=== PATIENT | male | born 1950 | race Caucasian/White ===

== ENCOUNTER 2016-10-21 19:07 | Emergency (ER) | payer MEDICARE ==
[~2016-10-21] VITALS: Ht 177.8 cm; Wt 106.4 kg
[2016-10-21 19:31] VITALS: BP 173/102; PULSE 111; RESP 18; O2SAT 96
[2016-10-21 20:35] LABS: BASOPHILS % (AUTO) 0.8 % (0-3); EOSINOPHILS % (AUTO) 1.8 % (0-5); Mean Corpuscular Volume 88.1 fL (81-100); NEUTROPHILS % (AUTO) 71.7 % (40-74); Platelet Count 258 bil/L (150-400)
[2016-10-21 21:17] LABS: TROPONIN T < 0.010 ug/L (0.0-0.011)
[2016-10-21 22:19] VITALS: BP 169/90; PULSE 116; RESP 20; O2SAT 95
--- NOTE | 2016-10-21 22:25 | ED.REPORT ---
HPI-General Illness Date of Service October 21, 2016 ED Provider: Devang Lr MD The patient is a 66 year old male who presents to the ED due to racing heart and elevated heart rate [employer]. 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 He is worried that it is still too high. Associated symptoms include light, mid-chest pain and a slight cough. He has never had a heart attack and is not on any medication for blood sugar. The pt denies any other symptoms or health issues. He is also on lisinopril. Pt denies nausea, vomiting, diaphoresis, and productive- cough. Nursing Notes Stated Complaint: BLOOD PRESSURE Chief Complaint: General Complaint Nursing Notes Reviewed: Yes Allergies: Coded Allergies: colchicine (Verified Allergy, Mild, rash, 10/21/16) allopurinol (Verified Adverse Reaction, Unknown, Rash,Itching,, 10/21/16) Uncoded Allergies: CHICKEN EGGS (Allergy, Unknown, 10/21/16) Scheduled Metoprolol Tartrate (Metoprolol Tartrate) 25 Mg Tablet 12.5 MG PO BID General Time Seen by MD: 22:24 Chief Complaint Other (elevated heart rate ) Hx Obtained From: Patient Arrived By: Walk-in Sudden in Onset?: Yes Recent Healthcare: Recent doctor visit Similar Sx Previous: No Past Medical History Past Medical History HTN Past Surgical History Reports: Tonsillectomy Smoking History Never Smoker Social History Other Social History: Good social support, Local resident Ambulatory Status Independent Review of Systems elevated heart rate Full Review of Systems Respiratory: Reports: Non-productive cough, Denies: Prod cough, clear Cardiovascular: Reports: Chest pain ("light, mid-chest pain") GI: Denies: Nausea, Vomiting Musculoskeletal: Denies: Extremity swelling Skin: Denies Diaphoresis Complete sys rev & neg: except as marked. Physical Exam Vital Signs Vital Signs Date Time Temp Pulse Resp B/P Pulse Ox O2 Delivery O2 Flow Rate FiO2 10/22/16 00:55 70 16 125/79 97 10/22/16 00:11 68 14 106/68 96 Room Air 10/21/16 22:19 116 20 169/90 95 10/21/16 19:31 36.7 111 18 173/102 96 Room Air Initial VS: Reviewed Head / Eyes: Atraumatic, Normocephalic, PERRL ENT: Mucous membranes moist, Conjunctiva normal Neck: Supple, Non-tender Respiratory: Breath sounds normal, Clear to auscultation, No respiratory distress Abdomen / GI: Soft, Non-tender, No guarding, No rebound Extremities: Vascular intact, Neuro intact, No swelling, No tenderness Skin: Warm, Dry Neurologic: Alert, Oriented Psychiatric: Mood/affect normal, Behavior normal General/Constitutional: Awake, Alert, No acute distress, Cooperative, Not toxic appearing Cardiovascular: No gallop, No murmurs, No rubs Heart Rate / Rhythm: Positive: Tachycardia Interpretation & Diagnostics Lab Results Interpretation Result Diagram: 10/21/16202610/21/162026 Test 10/21/16 20:27 White Blood Count 10.4th/mm3 (3.8-10.1) Red Blood Count 5.47mil/mm3 (4.40-5.80) Hemoglobin 16.4g/dL (13.8-17.2) Hematocrit 48.2% (41.0-50.0) Mean Corpuscular Volume 88.1fL (81-100) Mean Corpuscular Hemoglobin 30.0pg (27.0-35.0) Mean Corpuscular Hemoglobin Concent 34.0% (32.0-37.0) Red Cell Distribution Width 13.1% (12.3-15.4) Platelet Count 258bil/L (150-400) Neutrophils (%) (Auto) 71.7% (40-74) Lymphocytes (%) (Auto) 17.4% (14-46) Monocytes (%) (Auto) 8.0% (4-12) Eosinophils (%) (Auto) 1.8% (0-5) Basophils (%) (Auto) 0.8% (0-3) Sodium Level 138mEq/L (134-144) Potassium Level 4.2mEq/L (3.5-5.2) Chloride Level 100mEq/L (97-108) Carbon Dioxide Level 20mmol/L (18-29) Blood Urea Nitrogen 23mg/dL (8-27) Creatinine 1.05mg/dL (0.76-1.27) Estimat Glomerular Filtration Rate 75mL/min (>59) Glucose Level 111mg/dL (60-99) Calcium Level 9.7mg/dL (8.5-10.1) Total Bilirubin 0.4mg/dL (0.0-1.2) Aspartate Amino Transf (AST/SGOT) 20U/L (0-50) Alanine Aminotransferase (ALT/SGPT) 22U/L (0-44) Alkaline Phosphatase 76U/L (25-160) Troponin T < 0.010ug/L (0.0-0.011) Pro-B-Type Natriuretic Peptide 11.36pg/mL (0-376) Total Protein 7.5g/dL (6.4-8.4) Albumin 4.3g/dL (3.4-5.0) Hold Varela Top Tube Received (Received) X-Ray Chest Interpretation Chest Xray Interpretation: Impression: No acute abnormalities View: Portable Interpretation / Wet Read by: Wet read ED physician Re-Eval/Medical Decision Med Decision/Clinical Course 66-year-old presents with tachycardia and fatigue about a week out from beginning amlodipine in addition to baseline lisinopril. He is persistently tachycardic but responding to beta blockers here. Suspect this is reflex tachycardia due to amlodipine in addition to his lisinopril, both vasodilators. He is feeling much better after metoprolol, with a pulse in the 80s. Discharged home after an oral dose, with plans for 12.5 mg by mouth twice a day. Reassessment by his doctor to decide if amlodipine is the appropriate drug for him or not. It may be appropriate, especially if covered with a beta flavia to prevent reflex tachycardia. Discharged in stable condition. Time of Eval: 00:39 Patient Status: Pain improved Re-Evaluation/Progress Note: Pt rechecked. No longer feeeling tachycardic. Plan to discharge. F/U and RTER warnings given. Pt understands and agrees with plan. F/U and RTER warnings given. Pt understands and agrees with plan. Counseled Regarding: Diagnosis, Lab results, Need for follow-up, When/why to return to ED Discharge & Departure Primary Impression: Tachycardia Additional Impression: Reflex tachycardia Disposition: Home Discharge Condition All VS Reviewed: Yes Condition: Stable Additional Instructions: Your rapid heart rate may well be caused by the amlodipine. It is not uncommon to have a reflex tachycardia (rapid heartbeat) when starting amlodipine. Begin metoprolol 12.5 mg twice daily to control your rate. Contact your doctor tomorrow for follow-up within this week. Continue your other medicines as directed. Return if any immediate issues. Referrals: Elia Nicole DO (PCP) Dion Gomez MD (Family) Scribe Attestation Portion of this note were transcribed by Monica Hudson. I, Dr. Devang Lr, personally performed the history, physical exam, and medical decision- making: I reviewed and confirmed the accuracy for the information in the transcribed note. Signed by: etienne Hunter, 10/22/16 0030 copies to: Elia Nicole Christopher W MD October 21, 2016 22:25 Monica Hudson October 21, 2016 22:37
[2016-10-21] MEDS ORDERED: MeTOProlol 1 mg/mL 5 mL Inj IVPUSH SCH (22:40)
[2016-10-22 00:11] VITALS: BP 106/68; PULSE 68; RESP 14; O2SAT 96
[2016-10-22] MEDS ORDERED: METO25TA6 PO (00:38)
[2016-10-22 00:55] VITALS: BP 125/79; PULSE 70; RESP 16; O2SAT 97
--- NOTE | 2016-10-23 11:55 | DRSVH ---
PROCEDURE: X-RAY CHEST, TWO VIEWS ([id number]) INDICATIONS: htn, tachycardia TECHNIQUE: 2 views of the chest were acquired. COMPARISON: None. FINDINGS: Surgical changes and devices: None. Lungs and pleura: No pleural effusions or pneumothorax. Lungs are clear. Mediastinum: Mediastinal contours are normal. Heart size is normal. Bones and chest wall: No suspicious bony abnormalities. Soft tissues appear unremarkable. IMPRESSION: Negative chest Dictated by: Ambrosio Calhoun M.D. on 10/22/2016 at 7:55 Approved by: Ambrosio Calhoun M.D. on 10/22/2016 at 7:56
== END 2016-10-22 01:03 | disposition home or self-care (01) ==
LOC: SED 19:07
DX: R00.0 Tachycardia, unspecified (principal); I10 Essential (primary) hypertension; X50.9XXA Other and unspecified overexertion or strenuous movements or postures, initial encounter; Y93.89 Activity, other specified; Y99.8 Other external cause status; Y92.015 Private garage of single-family (private) house as the place of occurrence of the external cause; Z88.8 Allergy status to other drugs, medicaments and biological substances